=== PATIENT | male | born 1955 | race Caucasian/White ===

== ENCOUNTER → 2018-01-21 | Outpatient (CLI) | payer OTHER ==
[~2018-01-21] MED LIST: ADVIL200 MG PO; ATACAND16 MG PO; BACTRIM,SEPT1 TABLET PO; CANDESARTAN CIL16 MG PO; ENDOCET 5-3251 EACH PO; ERGOCALCIF50000 UNIT PO; JANUMET 50/11 TABLET PO; LEVOFLOXACIN750 MG PO; LYRICA50 MG PO; PERCOCET 5/31 TABLET PO; SIMVASTATIN40 MG PO
== END | disposition home or self-care (01) ==
LOC: PICC 10:30
DX: M86.9 Osteomyelitis, unspecified (principal)
CPT/HCPCS: 76937